=== PATIENT | male | born 1975 | race Two or more races ===

== ENCOUNTER 2016-11-30 10:48 | Emergency (ER) | payer MEDICARE, MEDICAID ==
[~2016-11-30] VITALS: Ht 170.2 cm; Wt 97.1 kg
[~2016-11-30 10:48] MED LIST: CITA20TA3 PO; FLU05NSL; HYDR25TA4 PO; LOS50T PO; NOR10T PO; OLAN5TAB30 PO; QUE100T PO
[2016-11-30 11:59] VITALS: BP 123/69
== END 2016-11-30 12:12 | disposition home or self-care (01) ==
LOC: ER 10:48
DX: J02.9 Acute pharyngitis, unspecified (principal); E11.9 Type 2 diabetes mellitus without complications; I10 Essential (primary) hypertension; Z88.0 Allergy status to penicillin